=== PATIENT | male | born 1950 | race Caucasian/White ===

== ENCOUNTER 2017-04-20 08:20 | Day surgery (SDC) | payer BC ==
[2017-04-16 11:42] VITALS: BMI 31.1
[2017-04-20] MEDS ORDERED: PROPOFOL 20 ML ONE ×2 (08:34)
[2017-04-20 10:48] VITALS: BP 122/78; PULSE 64; TEMP 98
== END 2017-04-20 10:50 | disposition home or self-care (01) ==
LOC: FASU-ENDO 08:20
PROVIDERS: ATTEND Internal Medicine Gastroenterology
PROC: 0DJD8ZZ Inspection of Lower Intestinal Tract, Via Natural or Artificial Opening Endoscopic (ICD-10-PCS; principal; 2017-04-20 09:46)
DX: Z86.010 Personal history of colon polyps (principal)

== ENCOUNTER 2022-07-14 08:39 | Day surgery (SDC) | payer OTHER, BC ==
[2022-07-10 15:46] VITALS: BMI 31.2
[2022-07-14 11:26] VITALS: TEMP 97.2
[2022-07-14 12:03] VITALS: BP 105/66; PULSE 58; RESP 18
== END 2022-07-14 11:30 | disposition home or self-care (01) ==
LOC: FASU-ENDO 08:39
PROVIDERS: ATTEND Internal Medicine Gastroenterology
PROC: 0DJD8ZZ Inspection of Lower Intestinal Tract, Via Natural or Artificial Opening Endoscopic (ICD-10-PCS; principal; 2022-07-14 09:59)
DX: Z12.11 Encounter for screening for malignant neoplasm of colon (principal); Z86.010 Personal history of colon polyps